=== PATIENT | male | born 1985 | race Caucasian/White ===

== ENCOUNTER 2020-07-11 23:26 | Emergency (ER) | payer OTHER ==
[2020-07-12 01:41] LABS: HEMOGLOBIN 14.8 gm/dl (14.0-17.5); RED BLOOD COUNT 4.69 M/UL (4.20-5.50); WHITE BLOOD COUNT 19.1 K/UL (4.5-11.0)
[2020-07-12 01:58] LABS: BUN/CREATININE RATIO 7 (0-10)
== END 2020-07-12 05:13 | disposition short-term general hospital (02) ==
LOC: ER1 23:26
PROVIDERS: Physician Assistant
DX: M46.1 Sacroiliitis, not elsewhere classified (principal); G06.1 Intraspinal abscess and granuloma
CPT/HCPCS: 72131; 73502; 80053; 82550; 82553; 83874; 84484; 85025; 85652; 86140; 87040; 96365; 96366; 96368; 99285; J0696; J3370; J7030

== ENCOUNTER 2020-12-08 06:53 | Emergency (ER) | payer OTHER | END 2020-12-08 11:46 | disposition home or self-care (01) | LOC: ER1 06:53 | DX: T74.21XA Adult sexual abuse, confirmed, initial encounter (principal); F17.210 Nicotine dependence, cigarettes, uncomplicated | CPT/HCPCS: 99284 ==

== ENCOUNTER 2020-12-08 14:28 | Emergency (ER) | payer OTHER ==
[2020-12-08 15:12] LABS: HEMOGLOBIN 14.2 gm/dl (14.0-17.5); RED BLOOD COUNT 4.57 M/UL (4.20-5.50); WHITE BLOOD COUNT 12.4 K/UL (4.5-11.0)
[2020-12-08 15:30] LABS: BUN/CREATININE RATIO 14 (0-10)
== END 2020-12-08 16:48 | disposition home or self-care (01) ==
LOC: ER1 14:28
PROVIDERS: Physician Assistant Medical
DX: R07.9 Chest pain, unspecified (principal); F17.210 Nicotine dependence, cigarettes, uncomplicated
CPT/HCPCS: 71045; 80053; 82550; 82553; 83874; 84484; 85025; 93005; 99285

== ENCOUNTER 2020-12-13 15:10 | Emergency (ER) | payer OTHER | END 2020-12-13 22:25 | disposition home or self-care (01) | LOC: ER1 15:10 | DX: Z04.41 Encounter for examination and observation following alleged adult rape (principal); F17.200 Nicotine dependence, unspecified, uncomplicated | CPT/HCPCS: 99283 ==

== ENCOUNTER 2020-12-13 21:48 | Emergency (ER) | payer OTHER | END 2020-12-14 08:39 | disposition left against medical advice (07) | LOC: ER1 21:48 | DX: T74.21XA Adult sexual abuse, confirmed, initial encounter (principal); I10 Essential (primary) hypertension | CPT/HCPCS: 99284 ==

== ENCOUNTER 2020-12-14 07:46 | Emergency (ER) | payer OTHER | END 2020-12-14 09:05 | disposition home or self-care (01) | LOC: ER1 07:46 | DX: T74.21XA Adult sexual abuse, confirmed, initial encounter (principal) | CPT/HCPCS: 99284 ==

== ENCOUNTER 2020-12-14 22:02 | Emergency (ER) | payer OTHER | END 2020-12-14 22:45 | disposition home or self-care (01) | LOC: ER1 22:02 | DX: Z04.41 Encounter for examination and observation following alleged adult rape (principal) | CPT/HCPCS: 99283 ==

== ENCOUNTER 2020-12-15 00:03 | Emergency (ER) | payer OTHER | END 2020-12-15 00:59 | disposition home or self-care (01) | LOC: ER1 00:03 | DX: T74.21XA Adult sexual abuse, confirmed, initial encounter (principal) | CPT/HCPCS: 99283 ==

== ENCOUNTER 2021-01-14 04:10 | Emergency (ER) | payer OTHER | END 2021-01-15 10:10 | disposition home or self-care (01) | LOC: ER1 04:10 | DX: F22 Delusional disorders (principal); Z20.822 Contact with and (suspected) exposure to COVID-19 | CPT/HCPCS: 96372; 99284; J1885; Q0177; U0002 ==